=== PATIENT | female | born 1990 | race Caucasian/White ===

== ENCOUNTER 2019-03-13 21:20 | Emergency (ER) | payer SELFPAY ==
[2019-03-13 21:25] VITALS: BP 117/52; PULSE 56; RESP 20; TEMP 36.8; O2SAT 93; BMI 23.5
--- NOTE | 2019-03-13 21:31 | XR_ITS ---
XR chest 2V HISTORY: Chest pain ITS.REASON: chest tightness ORDERING PHYSICIAN: Cabrera Baez MD PATIENT AGE: 28 years Technique: PA and lateral chest COMPARISON: None available. 3.. FINDINGS: Lungs are clear with nothing definitely acute. The cardiomediastinal silhouette is normal. Pulmonary vascularity normal. . Jessica and mediastinal structures appear satisfactory The lungs are clear without infiltrates, suspicious nodules, or pleural effusions. No acute bony abnormalities. Old right sixth and seventh rib fractures noted. IMPRESSION: No active disease. Lungs clear. Right sixth and seventh rib fractures
--- NOTE | 2019-03-13 21:31 | [facility].EDGENADL ---
ED Disposition Clinical Impression: Atypical chest pain, Substance abuse Disposition: Home, Self-Care Condition on Discharge: Good Instructions: DI for Atypical Chest Pain Additional Instructions: You are being provided with a list of physicians available for follow-up of your condition. Please call a physician on this list to arrange a follow-up appointment as soon as possible. Follow-up at the health department or a primary care provider for HIV testing. Additional instructions for CHEST PAIN: See your physician as soon as possible for further evaluation. Return immediately if worsening chest pain, vomiting, shortness of breath, fever, coughing of blood. Referrals: Provider,Referral, [Primary Care Provider] - - Critical Care Critical Care Time: No Attestation: On , the high probability of a clinically significant, sudden or life threatening deterioration of the following system(s) required my full and direct attention, intervention and personal management. The time I documented below is in addition to time spent performing reported procedures but includes the following listed in this critical care notation. Medical Decision Making - Joshua Inquiry Pt receiving controlled substance: No Vital Signs: 03/13/19 21:25 Temperature 98.2 F Temperature Source Oral Pulse Rate [Right] 56 L Respiratory Rate 20 Blood Pressure [Right Arm] 117/52 L Blood Pressure Mean [Right Arm] 73 02 Sat by Pulse Oximetry 93 L - Lab Data Lab Results 03/13/19 21:30: Urine Color Yellow, Urine Appearance Clear, Urine pH 6.0, Ur Specific [place] 1.025, Urine Protein Negative, Urine Glucose (UA) Negative, Urine Ketones Negative, Urine Blood Negative, Urine Nitrate Negative, Urine Bilirubin Negative, Urine Urobilinogen 2.0, Ur Leukocyte Esterase Negative, Urine WBC 3-5, Ur Squamous Epith Cells 5-10, Amorphous Sediment Trace, Urine Mucus 1+ 03/13/19 21:30: WBC 12.8 H, RBC 5.32, Hgb 14.3, Hct 45.9, MCV 86.3, MCH 26.9 L, MCHC 31.2 L, RDW 12.6, Plt Count 314, MPV 8.9, Neut % (Auto) 69.1, Lymph % (Auto) 20.4, [place] % (Auto) 6.0, Eos % (Auto) 4.0, Baso % (Auto) 0.4, Neut # (Auto) 8.8 H, Lymph # (Auto) 2.6, [place] # (Auto) 0.8, Eos # (Auto) 0.5 H, Baso # (Auto) 0.1 03/13/19 21:30: Urine HCG, Qual Negative 03/13/19 21:30: Sodium 143, Potassium 3.6, Chloride 106, Carbon Dioxide 27, Anion Gap 13.6, BUN 18, Creatinine 0.72, Estimated Creat Clear 125, Estimated GFR 96, Est GFR ( Amer) 117, Glucose 90, Calcium 9.3, Troponin I < 0.02 03/13/19 21:30: Urine Opiates Screen Negative, Urine Methadone Screen Negative, Ur Barbituates Screen Negative, Ur Phencyclidine Scrn Negative, Ur Amphetamines Screen Positive H, U Benzodiazepines Scrn Negative, Urine Cocaine Screen Negative, U Marijuana (THC) Screen Positive H 03/13/19 21:30: D-Dimer < 100 Result diagrams: 03/13/19 21:30 03/13/19 21:30 Orders (Tests/Meds): ORDERS Category Date Time Status XR chest 2V Stat Exams 03/13/19 21:31 Taken ECG Request by /Nse Stat Y 03/13/19 21:31 Ordered - Radiology Data #1 Image(s): Chest Image Reviewed: Yes I reviewed the patient's radiology image Preliminary Findings: Normal/NAD - ECG Data Tracing #1 EKG interpreted by Cabrera Baez MD: Rhythm: sinus Rate: 58 [place]: normal Ectopy: none Conduction: normal ST Segment Changes: none T Wave Changes: Nonspecific Q Waves: none No evidence of acute ischemia or injury No prior EKGs available for comparison General Adult HPI - General Chief complaint: Chest Pain Stated complaint: Tightness in chest Time Seen by Provider: 03/13/19 21:31 Mode of Arrival: Ambulatory Limitations: No Limitations Description of Symptoms (Recalled from ER Triage Doc. 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 - History of Present Illness HPI narrative: Chest tightness and shortness of breath since 7 A
[2019-03-13 21:40] LABS: Microscopic, Urine URINE MICROSCOPIC (MICROSCOPIC)
[2019-03-13 21:44] LABS: Basophils # 0.1 K/mm3 (0-0.2); Basophils % 0.4 % (0.1-2.0); Eosinophils # 0.5 K/mm3 (0.0-0.4); Hematocrit 45.9 % (37.0-47.0); Hemoglobin 14.3 g/dL (12.2-16.2); Lymphocytes # 2.6 K/mm3 (0.7-4.5); Lymphocytes % 20.4 % (10-50); Mean Corpuscular HGB Conc 31.2 g/dL (31.8-35.4); Mean Corpuscular Hemoglobin 26.9 pg (27.0-31.2); Mean Corpuscular Volume 86.3 fl (81-99); Mean Platelet Volume 8.9 fl (7.4-10.4); Monocytes # 0.8 K/mm3 (0.1-1.0); Neutrophils # 8.8 K/mm3 (1.8-7.8); Neutrophils % 69.1 % (37.0-80.0); Platelet Count 314 K/mm3 (142-424); Red Blood Count 5.32 M/mm3 (4.20-5.40); Red Cell Distribution Width 12.6 % (11.5-17.5); White Blood Count 12.8 K/mm3 (4.8-10.8)
[2019-03-13 21:45] LABS: Appearance,Urine CLEAR (Clear); Blood, Urine Negative (Negative); Color,Urine YELLOW (Yellow); Glucose,Urine (UA) Negative (Negative); Ketones,Urine Negative (Negative); Leukocyte Esterase,Urine Negative (Negative); Nitrate,Urine Negative (Negative); Protein,Urine Negative (Negative); Specific Gravity, Urine 1.025 (1.005-1.030)
[2019-03-13 21:50] LABS: Urine Pregnancy, HCG Qual. Negative (Negative)
[2019-03-13 21:51] LABS: Amphetamine/Metha Screen,Urine Positive ng/mL (<1000); Barbiturates Screen,Urine Negative ng/mL (<200); Benzodiazepines Screen,Urine Negative ng/mL (<200); Bilirubin,Urine Negative (Negative); Cannabinoid Screen,Urine Positive ng/mL (<50); Cocaine Screen,Urine Negative ng/mL (<300); Methadone Screen,Urine Negative ng/mL (<300); Opiate Screen,Urine Negative ng/mL (<300); Phencyclidine Screen,Urine Negative ng/mL (<25)
[2019-03-13 21:52] LABS: Amorphous Sediment,Urine Trace /lpf; Mucus,Urine 1+ /lpf
[2019-03-13 22:07] LABS: Anion Gap 13.6 mEq/L (5-15); Blood Urea Nitrogen 18 mg/dL (7-18); Calcium 9.3 mg/dL (8.5-10.1); Carbon Dioxide 27 mmol/L (21.0-32.0); Chloride 106 mmol/L (98-107); Creatinine Clearance Estimated 125 mL/min (50-200); Creatinine,Serum 0.72 mg/dL (0.55-1.02); Estimated Glomerular Filt Rate 96 ml/min (>60); GFR (African American) 117 ML/MIN (>60); Glucose 90 mg/dL (74-106); Potassium 3.6 mmoL/L (3.5-5.1); Sodium 143 mmol/L (136-145); Troponin I < 0.02 ng/ml (0.00-0.06)
[2019-03-13 22:11] LABS: D-Dimer < 100 ng/mL (0-400)
[2019-03-13 23:26] VITALS: BP 123/74; PULSE 79; RESP 17; TEMP 36.6; O2SAT 100
== END 2019-03-13 23:28 | disposition home or self-care (01) ==
PROVIDERS: Emergency Provider Emergency Medicine
DX: R07.89 Other chest pain (principal); F19.10 Other psychoactive substance abuse, uncomplicated; F17.210 Nicotine dependence, cigarettes, uncomplicated
CPT/HCPCS: 71046; 80048; 80305; 81001; 81025; 84484; 85025; 85378; 93005; 99283